=== PATIENT | male | born 1975 | race Caucasian/White ===

== ENCOUNTER 2016-06-19 17:29 | Observation (INO) ==
[2016-06-19 18:08] LABS: Basophils # 0.1 K/mcL (0.0-0.2); Basophils % 0.6 %; Eosinophils # 0.1 K/mcL (0.0-0.6); Eosinophils % 1.4 %; Hematocrit 49.1 % (37.5-50.1); Hemoglobin 17.7 g/dL (12.9-16.9); Immature Granulocytes % 0.3 % (0-4); Lymphocytes # 4.5 K/mcL (0.6-4.6); Lymphocytes % 52.2 %; Mean Corpuscular Hemoglobin 32.8 pg (28.0-33.3); Mean Corpuscular Volume 90.9 fL (83.0-100.0); Mean Platelet Volume 9.9 fL (9.4-12.4); Monocytes % 11.4 %; Neutrophils # 2.9 K/mcL (1.6-8.9); Platelet Count 247 K/mcL (140-400); Red Cell Distribution Width 13.7 % (11.5-14.5); Segmented Neutrophils % 34.1 %
[2016-06-19 18:15] LABS: Bilirubin,Urine Negative (Negative); Blood,Urine Negative (Negative); Clarity,Urine Clear (Clear); Color,Urine Yellow (Yellow); Glucose,Urine (UA) Normal (Normal); Ketones,Urine Negative (Negative); Leukocyte Esterase,Urine Negative (Negative); Nitrite,Urine Negative (Negative); PH,Urine 6.5 pH Units (5.0-8.0); Protein,Urine Negative (Neg-Trace); Specific Gravity,Urine 1.007 (1.010-1.025); Urobilinogen,Urine Normal (Normal)
[2016-06-19 18:20] LABS: Amphetamine Screen,Urine Negative ng/mL (Cutoff=1000); Barbiturate Screen,Urine Negative ng/mL (Cutoff=200); Benzodiazepines Screen,Urine Positive ng/mL (Cutoff=200); Cannabinoid Screen,Urine Negative ng/mL (Cutoff = 50); Cocaine Screen,Urine Negative ng/mL (Cutoff= 300); Opiate Screen,Urine Negative ng/mL (Cutoff=300); Phencyclidine Screen,Urine Negative ng/mL (Cutoff=25)
[2016-06-19 18:25] LABS: BUN/Creatinine Ratio 8 (6-26); Blood Urea Nitrogen 7 mg/dL (8-26); Calcium 8.4 mg/dL (8.6-10.8); Carbon Dioxide 24 mEq/L (19-29); Chloride 112 mEq/L (98-109); Ethanol 347 mg/dL (0-10); Glucose 90 mg/dL (70-99); Osmolality,Calculated 302 (280-300); Potassium 3.8 mEq/L (3.5-4.5); Sodium 147 mEq/L (136-145); eGFR For African Americans > 60 (> 60); eGFR For Non-African Americans > 60 (> 60)
[2016-06-19 18:26] LABS: Acetaminophen < 1.0 mcg/mL (10-30); Salicylate < 5.0 mg/dL (15-30)
[2016-06-20 04:52] LABS: Basophils # 0.1 K/mcL (0.0-0.2); Eosinophils # 0.2 K/mcL (0.0-0.6); Eosinophils % 2.1 %; Hematocrit 45.7 % (37.5-50.1); Immature Granulocytes % 0.4 % (0-4); Lymphocytes # 3.6 K/mcL (0.6-4.6); Lymphocytes % 46.4 %; Mean Corpuscular HGB Conc 34.4 g/dL (31.6-35.5); Mean Corpuscular Hemoglobin 31.9 pg (28.0-33.3); Mean Corpuscular Volume 92.9 fL (83.0-100.0); Mean Platelet Volume 9.9 fL (9.4-12.4); Monocytes # 1.1 K/mcL (0.0-1.3); Monocytes % 14.2 %; Neutrophils # 2.8 K/mcL (1.6-8.9); Platelet Count 237 K/mcL (140-400); Red Blood Count 4.92 M/mcL (4.19-5.50); Red Cell Distribution Width 13.8 % (11.5-14.5); Segmented Neutrophils % 35.9 %
[2016-06-20 05:03] LABS: BUN/Creatinine Ratio 9 (6-26); Blood Urea Nitrogen 7 mg/dL (8-26); Calcium 8.1 mg/dL (8.6-10.8); Carbon Dioxide 23 mEq/L (19-29); Chloride 108 mEq/L (98-109); Glucose 77 mg/dL (70-99); Hemoglobin 15.7 g/dL (12.9-16.9); Osmolality,Calculated 291 (280-300); Potassium 3.6 mEq/L (3.5-4.5); Sodium 142 mEq/L (136-145); eGFR For African Americans > 60 (> 60); eGFR For Non-African Americans > 60 (> 60)
[2016-06-20 12:12] VITALS: BP 149/94
== END 2016-06-20 16:22 | disposition home or self-care (01) ==
LOC: 3BNU 17:29 → EMEROO 17:29 → 3BNU 20:25 → SUATTDRO 20:41
PROVIDERS: ADMIT Internal Medicine; ATTEND Internal Medicine

== ENCOUNTER 2016-06-21 21:52 | Observation (INO) ==
--- NOTE | 2016-06-21 22:17 | Emergency Department Note ---
Disposition Clinical Impression: Suicidal ideation Acute alcohol intoxication Qualifiers: Complication of substance-induced condition: uncomplicated Qualified Code(s): F10.120 - Alcohol abuse with intoxication, uncomplicated Disposition: Admitted As Inpatient Condition: Fair Referrals: NO,PCP [Primary Care Provider] - Forms: ED Satisfaction Letter Time of Disposition: 03: Psych HPI - General Chief Complaint: ED Psychiatric Symptoms Stated Complaint: seizures Time Seen by Provider: 06/21/16 21:58 Source: EMS Mode of arrival: EMS Limitations: no limitations Nursing Notes Reviewed: Yes Vital Signs Reviewed: Yes - History of Present Illness HPI Narrative: 41-year-old male history of suicidal ideation presents with same, also has a history of seizures noncompliant on Keppra for the last year, with 1 minute witnessed seizure in route by EMS. Apparently per the patient, he was at home upset that his aunt was and started to "flip out" on people, called the health care social worker Carolina SANTANA, she then called law enforcement and he wrote a pink slip. Patient reports thoughts of suicide to several ideation by himself. This what he told his health care social worker. She wrote a pink slip that also included he was a threat of homicidal ideation, dots of hurting himself and other people. She denies auditory or visual hallucinations. 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 Constitutional: Denies: fever, chills, weakness, weight change Eyes: Denies: eye pain, eye discharge, vision change Cardiovascular: Denies: chest pain, palpitations, dyspnea on exertion, edema, syncope Respiratory: Denies: cough, dyspnea, wheezes, hemoptysis, stridor Gastrointestinal: Denies: abdominal pain, nausea, vomiting, diarrhea, constipation, hematemesis, melena, hematochezia Genitourinary: Denies: urgency, dysuria, frequency, hematuria Musculoskeletal: Denies: back pain, neck pain, arthralgia, myalgia Neurological: Denies: headache, weakness, numbness, paresthesias, confusion, abnormal gait, vertigo Psychiatric: Reports: depression, suicidal thoughts (Thoughts of hanging himself ) Past Medical History - Past Medical History Attestation: Yes The following information was validated with the patient. Source: patient Medical history: Reports: hepatitis, hyperlipidemia, hypertension, seizures Surgical history: Reports: other Psychiatric history: Reports: no psych history - Social History Smoking Status: Current every day smoker Smokeless Tobacco Status: No Alcohol use: Reports: heavy, recent Drug use: Reports: none, marijuana Physical Exam Constitutional: alert and oriented, in NAD, vital signs reviewed and were within normal limits Neck: normal inspection, neck is supple, trachea midline, no JVD Resp: normal chest inspection, CTA bilaterally, no resp distress, symmetric chest rise CV: RRR, no m/g/r, Pulses +2 Rad, +2 DP/PT bilaterally, no pedal edema GI: normal inspection, Soft, NTND, BS present and normoactive Back: normal inspection, no tenderness to palpation Neuro: A&O3, CN II-XII grossly intact bilaterally, no gross motor or sensory deficits bilaterally MSK: normal inspection, bilateral UE and LE with normal ROM and no deformities Psych: Positive for suicidal ideation admit to thoughts of hanging himself Skin: No rashes, skin warm, dry, intact - General Limitations: no limitations General appearance: alert, in no apparent distress Course Course Narrative: 41-year-old male with suicidal ideation, pink slip by [employer] Susan Casillas en route, brought in by , also self-harm, threatened pain himself, will do psych workup and then clearance and one a evaluation - Reevaluation(s) Reevaluation #1: Blood alcohol 240, was admitted to medicine service for sobriety and then medical clearance to be evaluated by psych Time: 03:17 Vital Signs Temperature 98.7 F 06/21/16 21:53 Pulse Rate 96 06/21/16 21:53 Respiratory Rate 16 06/21/16 21:53 Blood Pressure 174/108 06/21/16 21:53 O2 Sat by Pulse Oximetry 95 06/21/16 21:53 Temperature 97.9 F 06/22/16 02:06 Pulse Rate 98 06/22/16 02:06 Respiratory Rate 16 06/22/16 02:06 Blood Pressure 108/64 06/22/16 02:06 O2 Sat by Pulse Oximetry 95 06/22/16 02:06 Oxygen Delivery Oxygen Delivery Room Air Psych - Lab Data Result diagrams: 06/21/16 22:19 06/21/16 22:19 Lab Results 06/21/16 06/21/16 06/21/16 Range/Units 22:11 22:11 22:19 WBC 7.0 (4.3-11.1) K/mcL RBC 5.64 H (4.19-5.50) M/mcL Hgb 18.1 H D (12.9-16.9) g/dL Hct 51.2 H (37.5-50.1) % MCV 90.8 (83.0-100.0) fL MCH 32.1 (28.0-33.3) pg MCHC 35.4 (31.6-35.5) g/dL RDW 13.5 (11.5-14.5) % Plt Count 245 (140-400) K/mcL MPV 10.1 (9.4-12.4) fL Immature Gran % 0.3 (0-4) % Seg Neutrophils % 34.5 % Lymphocytes % 50.4 % Monocytes % 11.9 % Eosinophils % 2.0 % Basophils % 0.9 % Neutrophils # 2.4 (1.6-8.9) K/mcL Lymphocytes # 3.5 (0.6-4.6) K/mcL Monocytes # 0.8 (0.0-1.3) K/mcL Eosinophils # 0.1 (0.0-0.6) K/mcL Basophils # 0.1 (0.0-0.2) K/mcL Immature Plt Fraction 6.3 H (1.1-6.1) % Sodium (136-145) mEq/L Potassium (3.5-4.5) mEq/L Chloride (98-109) mEq/L Carbon Dioxide (19-29) mEq/L BUN (8-26) mg/dL Creatinine (0.72-1.25) mg/dL Est GFR ( Amer) (> 60) Est GFR (Non-Af Amer) (> 60) BUN/Creatinine Ratio (6-26) Glucose (70-99) mg/dL Calculated Osmolality (280-300) Calcium (8.6-10.8) mg/dL Urine Color Yellow (Yellow) Urine Clarity Clear (Clear) Urine pH 6.0 (5.0-8.0) pH Units Ur Specific [place] 1.010 (1.010-1.025) Urine Protein Negative (Neg-Trace) mg/dL Urine Glucose (UA) Normal (Normal) mg/dL Urine Ketones Negative (Negative) mg/dL Urine Blood Negative (Negative) Urine Nitrite Negative (Negative) Urine Bilirubin Negative (Negative) Urine Urobilinogen Normal (Normal) mg/dL Ur Leukocyte Esterase Negative (Negative) Salicylates (15-30) mg/dL Urine Opiates Screen Negative (Fhcsqg=267) ng/mL Acetaminophen (10-30) mcg/mL Ur Barbiturates Screen Negative (Ljnrzp=607) ng/mL Ur Phencyclidine Scrn Negative (Cutoff=25) ng/mL Ur Amphetamines Screen Negative (Knujju=0066) ng/mL U Benzodiazepines Scrn Positive H (Oifcyd=489) ng/mL Urine Cocaine Screen Negative (Cutoff= 300) ng/mL U Marijuana (THC) Screen Negative (Cutoff = 50) ng/mL Ethyl Alcohol (0-10) mg/dL 06/21/16 Range/Units 22:19 WBC (4.3-11.1) K/mcL RBC (4.19-5.50) M/mcL Hgb (12.9-16.9) g/dL Hct (37.5-50.1) % MCV (83.0-100.0) fL MCH (28.0-33.3) pg MCHC (31.6-35.5) g/dL RDW (11.5-14.5) % Plt Count (140-400) K/mcL MPV (9.4-12.4) fL Immature Gran % (0-4) % Seg Neutrophils % % Lymphocytes % % Monocytes % % Eosinophils % % Basophils % % Neutrophils # (1.6-8.9) K/mcL Lymphocytes # (0.6-4.6) K/mcL Monocytes # (0.0-1.3) K/mcL Eosinophils # (0.0-0.6) K/mcL Basophils # (0.0-0.2) K/mcL Immature Plt Fraction (1.1-6.1) % Sodium 146 H (136-145) mEq/L Potassium 3.9 (3.5-4.5) mEq/L Chloride 112 H (98-109) mEq/L Carbon Dioxide 21 (19-29) mEq/L BUN 4 L (8-26) mg/dL Creatinine 0.89 (0.72-1.25) mg/dL Est GFR ( Amer) > 60 (> 60) Est GFR (Non-Af Amer) > 60 (> 60) BUN/Creatinine Ratio 4 L (6-26) Glucose 92 (70-99) mg/dL Calculated Osmolality 299 (280-300) Calcium 8.5 L (8.6-10.8) mg/dL Urine Color (Yellow) Urine Clarity (Clear) Urine pH (5.0-8.0) pH Units Ur Specific [place] (1.010-1.025) Urine Protein (Neg-Trace) mg/dL Urine Glucose (UA) (Normal) mg/dL Urine Ketones (Negative) mg/dL Urine Blood (Negative) Urine Nitrite (Negative) Urine Bilirubin (Negative) Urine Urobilinogen (Normal) mg/dL Ur Leukocyte Esterase (Negative) Salicylates < 5.0 L (15-30) mg/dL Urine Opiates Screen (Ktijss=294) ng/mL Acetaminophen < 1.0 L (10-30) mcg/mL Ur Barbiturates Screen (Xxxslh=380) ng/mL Ur Phencyclidine Scrn (Cutoff=25) ng/mL Ur Amphetamines Screen (Dtsimx=3322) ng/mL U Benzodiazepines Scrn (Seuklr=507) ng/mL Urine Cocaine Screen (Cutoff= 300) ng/mL U Marijuana (THC) Screen (Cutoff = 50) ng/mL Ethyl Alcohol 242 H (0-10) mg/dL Psychiatric Medical Clearance - Medical Clearance Checklist Does the patient have a NEW psychiatric condition?: No Any abnormalities indicating possible medical illness?: No Any history of medical issues?: No Medical History: No Social History Section defined Any abnormal vital signs prior to transfer?: No Current Vitals: Last Vital Signs Temp 97.9 F 06/22/16 02:06 Pulse 98 06/22/16 02:06 Resp 16 06/22/16 02:06 BP 108/64 06/22/16 02:06 Pulse Ox 95 06/22/16 02:06 Is the patient intoxicated or cognitively impaired?: Yes Psychiatric Lab Panel: Drug Levels and Toxicity 06/21/16 06/21/16 22:11 22:19 Urine Opiates Screen Negative Acetaminophen < 1.0 L Ur Barbiturates Screen Negative Ur Phencyclidine Scrn Negative Ur Amphetamines Screen Negative U Benzodiazepines Scrn Positive H Urine Cocaine Screen Negative U Marijuana (THC) Screen Negative Ethyl Alcohol 242 H Any abnormalities on the physical exam?: Yes Any abnormal labs?: Yes Abnormal Labs: Abnormal lab results RBC 5.64 M/mcL (4.19-5.50) H 06/21/16 22:19 Hgb 18.1 g/dL (12.9-16.9) H D 06/21/16 22:19 Hct 51.2 % (37.5-50.1) H 06/21/16 22:19 Immature Plt Fraction 6.3 % (1.1-6.1) H 06/21/16 22:19 Sodium 146 mEq/L (136-145) H 06/21/16 22:19 Chloride 112 mEq/L (98-109) H 06/21/16 22:19 BUN 4 mg/dL (8-26) L 06/21/16 22:19 BUN/Creatinine Ratio 4 (6-26) L 06/21/16 22:19 Calcium 8.5 mg/dL (8.6-10.8) L 06/21/16 22:19 Salicylates < 5.0 mg/dL (15-30) L 06/21/16 22:19 Acetaminophen < 1.0 mcg/mL (10-30) L 06/21/16 22:19 U Benzodiazepines Scrn Positive ng/mL (Atnewe=970) H 06/21/16 22:11 Ethyl Alcohol 242 mg/dL (0-10) H 06/21/16 22:19 Does the patient require durable medical equiptment?: No Is the patient ambulatory?: Yes Is the patient a fall risk?: No Has the patient been medically cleared?: No Any acute medical condition require Tx prior to transfer?: No Statement of Medical Clearance: I have evaluated the patient, reviewed diagnostic information, and certify that the patient's medical condition is sufficiently stable that transfer to the psychiatric unit does not pose a significant risk of deterioration. Attestation Statement - Attestation Attestation: I, Tino Contreras MD, personally performed a history and physical exam of the patient and discussed their management with the resident. I reviewed the resident's note and agree with the documented findings, medical decision making , and plan of care. 41-year-old male who was brought to the emergency department by ambulance for medical clearance for psychiatric placement. The patient has a history of psychiatric issues and depression. He states that he has been depressed and he found out today that his abdomen was in the hospital and was dying. He admits to suicidal thoughts. He apparently was threatening to hang himself and his called his health care social worker who evaluated him at the resident's and referred him here with a signed pink slip. Patient has a history of seizures and does not take his medication for quite sometime. He apparently has seizures daily. On examination patient is a well-developed well-nourished male in no acute distress. He is alert and oriented 3. There is no cyanosis or diaphoresis. He is calm and cooperative. No gross focal neurological deficits. Breath sounds are equal bilaterally. Heart regular rate and rhythm. Abdomen is soft and nontender with normal bowel sounds. We will obtain medical clearance labs. Reportedly patient's air brake worker is supposed to come in to help with disposition. Labs reviewed. Tox screen positive for benzodiazepines. Alcohol level 242. The hospitalist, Dr. Roman, was consulted and accepted admission of the patient.
[2016-06-21 22:25] LABS: Bilirubin,Urine Negative (Negative); Blood,Urine Negative (Negative); Clarity,Urine Clear (Clear); Color,Urine Yellow (Yellow); Glucose,Urine (UA) Normal (Normal); Ketones,Urine Negative (Negative); Leukocyte Esterase,Urine Negative (Negative); Nitrite,Urine Negative (Negative); Protein,Urine Negative (Neg-Trace); Urobilinogen,Urine Normal (Normal)
[2016-06-21 22:26] LABS: Basophils # 0.1 K/mcL (0.0-0.2); Basophils % 0.9 %; Eosinophils # 0.1 K/mcL (0.0-0.6); Hematocrit 51.2 % (37.5-50.1); Immature Granulocytes % 0.3 % (0-4); Immature Platelets 6.3 % (1.1-6.1); Lymphocytes # 3.5 K/mcL (0.6-4.6); Lymphocytes % 50.4 %; Mean Corpuscular HGB Conc 35.4 g/dL (31.6-35.5); Mean Corpuscular Hemoglobin 32.1 pg (28.0-33.3); Mean Corpuscular Volume 90.8 fL (83.0-100.0); Mean Platelet Volume 10.1 fL (9.4-12.4); Monocytes # 0.8 K/mcL (0.0-1.3); Monocytes % 11.9 %; Neutrophils # 2.4 K/mcL (1.6-8.9); Platelet Count 245 K/mcL (140-400); Red Blood Count 5.64 M/mcL (4.19-5.50); Red Cell Distribution Width 13.5 % (11.5-14.5); Segmented Neutrophils % 34.5 %
[2016-06-21 22:27] LABS: Hemoglobin 18.1 g/dL (12.9-16.9)
[2016-06-21 22:28] LABS: Amphetamine Screen,Urine Negative ng/mL (Cutoff=1000); Barbiturate Screen,Urine Negative ng/mL (Cutoff=200); Benzodiazepines Screen,Urine Positive ng/mL (Cutoff=200); Cannabinoid Screen,Urine Negative ng/mL (Cutoff = 50); Cocaine Screen,Urine Negative ng/mL (Cutoff= 300); Opiate Screen,Urine Negative ng/mL (Cutoff=300); Phencyclidine Screen,Urine Negative ng/mL (Cutoff=25)
[2016-06-21 22:40] LABS: BUN/Creatinine Ratio 4 (6-26); Calcium 8.5 mg/dL (8.6-10.8); Carbon Dioxide 21 mEq/L (19-29); Chloride 112 mEq/L (98-109); Glucose 92 mg/dL (70-99); Osmolality,Calculated 299 (280-300); Potassium 3.9 mEq/L (3.5-4.5); Sodium 146 mEq/L (136-145); eGFR For African Americans > 60 (> 60); eGFR For Non-African Americans > 60 (> 60)
[2016-06-21 22:41] LABS: Acetaminophen < 1.0 mcg/mL (10-30); Blood Urea Nitrogen 4 mg/dL (8-26); Ethanol 242 mg/dL (0-10); Salicylate < 5.0 mg/dL (15-30)
[2016-06-22] MEDS ORDERED: Naloxone 0.4 MG/ML INJ IVP PRN (03:21)
[2016-06-22] MEDS ORDERED: Acetaminophen 325 MG TABLET PO PRN (03:21)
[2016-06-22] MEDS ORDERED: Ondansetron ODT 4 MG TAB.RAPDIS SL PRN (03:21)
[2016-06-22] MEDS ORDERED: *HR* Promethazine 25 MG/ML VIAL IVP PRN (03:21)
[2016-06-22] MEDS ORDERED: *HR* LORazepam 2 MG/ML VIAL IVP PRN ×6 (03:21→04:27)
[2016-06-22] MEDS ORDERED: hydrOXYzine pamoate 25 MG CAPSULE PO PRN (03:43)
--- NOTE | 2016-06-22 03:47 | Internal Med History&Physical ---
<Ana Paula Corral - Last Filed: 06/22/16 04:28> Date of Encounter: 06/22/16 Time of Encounter: 03:45 Assessment and Plan (1) Suicidal ideation Current visit: Yes Status: Acute 1A to see patient after his BAL level <80 (2) Alcohol dependence with intoxication Current visit: No Status: Acute CIWA protocol Qualifiers: Complication of substance-induced condition: with unspecified complication Qualified Code(s): F10.229 - Alcohol dependence with intoxication, unspecified (3) Convulsions Current visit: No Status: Acute psuedoseizures - witnessed during previous admission by ER and inpatient physicians, no post ictal state pt with hx of seizures per medical record, but not on any medications Qualifiers: Convulsion type: unspecified Qualified Code(s): R56.9 - Unspecified convulsions (4) Hepatitis C virus infection without hepatic coma Current visit: Yes Status: Chronic chronic Hep C must be free of alcohol and recreational drugs for 6 months before treatment can occur Qualifiers: Viral hepatitis chronicity: chronic Qualified Code(s): B18.2 - Chronic viral hepatitis C Internal Medicine - H&P: HPI Chief complaint: SI Admitted From: Emergency Dept Plans for Post Hospital Care: Home History of present illness: Mr. Sandra is a 41 year old male pink-slipped from the ER. According to the ER note, the patient became upset when he learned that his aunt had and began to "flip out" on people. His called his social work program coordinator who pink slipped him when she learned that he was suicidal. On my questioning the patient rambles about how things were messed up with his ex- and she was talking trash and wanting to have a three-some and this upset him. He then stated that he came to hospital because he was suicidal. Blood alcohol level in the emergency room was 242. Patient had a very similar admission 2 days prior. He was pink slipped due to suicidal ideation and was intoxicated at the time of admission. He was discharged the following day which was yesterday. Past Med Surg Social Fam HX - Past Medical History Medical history: GERD, hepatitis, hyperlipidemia, hypertension, seizures Psychiatric history: anxiety, depression, prior suicide attempt, previous psychiatric hospitalization - Past Surgical History Surgical History: other - Social History Smoking Status: Current every day smoker Smokeless Tobacco Status: No Alcohol use: heavy, recent Drug use: marijuana Internal Medicine - H&P: Meds Diazepam [Valium] 2 mg PO TID 06/19/16 [History] Duloxetine HCl [Cymbalta] 60 mg PO BID 06/19/16 [History] HydrOXYzine Pamoate 50 mg PO TID PRN 06/19/16 [History] Omeprazole [PriLOSEC] 40 mg PO DAILY 06/19/16 [History] Polyethylene Glycol 3350 17 gm PO BID PRN 06/19/16 [History] Allergies No Known Allergies Allergy (Verified 06/19/16 17:47) ROS unobtainable: due to mental status All Systems PM: A 10-system review of systems was performed and is negative for pertinent findings except as documented above in the HPI. - Constitutional Vitals: Temp Pulse Resp BP Pulse Ox 97.9 F 98 16 108/64 95 06/22/16 02:06 06/22/16 02:06 06/22/16 02:06 06/22/16 02:06 06/22/16 02:06 General appearance: Present: no acute distress - Head Head exam: Present: atraumatic, normocephalic Additional comments: tongue tacky - patient slightly dehydrated - Eye Eye exam: Present: conjunctival injection, PERRL, sclera anicteric Pupils: Present: PERRL - Neck Neck exam general surgery: Present: supple, trachea midline. Absent: lymphadenopathy - Respiratory Respiratory exam: Present: CTAB. Absent: accessory muscle use, rales, rhonchi, wheezes - Cardiovascular Cardiovascular exam: Present: RRR, +S1, +S2. Absent: diastolic murmur, gallop, rubs, systolic murmur - GI/Abdominal GI/Abdominal exam: Present: normal bowel sounds, soft, no peritoneal signs. Absent: distended, tenderness - Extremities Exam Extremities exam: Present: warm, radial pulses palpable and symetrical. Absent : calf tenderness, cyanotic, pedal edema - Neurological Exam Neurological exam: Present: CN II-XII intact, oriented X3, no focal deficits. Absent: pronater drift, facial droop, speech deficit - Skin Skin exam: Present: dry, intact Internal Med - H&P Results - Labs CBC & Chem 7: 06/21/16 22:19 06/21/16 22:19 <Malick Newman - Last Filed: 06/22/16 04:38> Date of Encounter: 06/22/16 Time of Encounter: 04:30 Assessment and Plan (1) Suicidal ideation Current visit: Yes Status: Acute (2) Acute alcohol intoxication Current visit: Yes Status: Acute Qualifiers: Complication of substance-induced condition: uncomplicated Qualified Code(s ): F10.120 - Alcohol abuse with intoxication, uncomplicated (3) Alcohol dependence with intoxication Current visit: No Status: Acute Qualifiers: Complication of substance-induced condition: with unspecified complication Qualified Code(s): F10.229 - Alcohol dependence with intoxication, unspecified Internal Medicine - H&P: HPI Admitted From: Emergency Dept Plans for Post Hospital Care: Home History of present illness: Mr. Sandra is a 41 year old male with history of alcohol abuse who was brought into the ER after complaining of suicidal ideation and with alcohol intoxication. Patient remembers being upset at home and drinking alcohol. He currently denies suicidal ideation. He was pink slipped in the ER due to suicidal thoughts and so will be seen by psychiatry after medically cleared. Past Med Surg Social Fam HX - Additional Family History Additional family history: Reviewed and found noncontributory at this time All Systems PM: A 10-system review of systems was performed and is negative for pertinent findings except as documented above in the HPI. - Constitutional Constitutional: no chills, no fever(s), no night sweats - EENT Eyes: no change in vision, no discharge, no pain, no photophobia Ears: no ear discharge, no ear pain, no tinnitus Nose, mouth and throat: no dysphagia, no nasal discharge, no neck pain, no sore throat - Cardiovascular Cardiovascular ROS IM: no chest pain, no diaphoresis, no dyspnea, no lightheadedness, no palpitations, no syncope - Respiratory Respiratory: no cough, no dyspnea, no wheezing, no excessive phlegm production - Gastrointestinal Gastrointestinal: no abdominal pain, no diarrhea, no hematemesis, no hematochezia, no melena, no nausea, no vomiting - Musculoskeletal Musculoskeletal ROS IM: no numbness, no tingling - Integumentary Integumentary IM: no rash, no unusual bruising - Neurological Neurological ROS: no confusion, no convulsions, no focal weakness, no numbness, no tingling, no tremor(s) - Hematologic/Lymphatic Hematologic/Lymphatic: no easy bruising - Constitutional Vitals: Temp Pulse Resp BP Pulse Ox 97.9 F 98 18 135/89 95 06/22/16 02:06 06/22/16 02:06 06/22/16 03:47 06/22/16 03:47 06/22/16 02:06 General appearance: Present: cooperative, A&O X 3, no acute distress, answers questions appropriately - Neck Neck exam general surgery: Present: supple, trachea midline. Absent: lymphadenopathy - Cardiovascular Cardiovascular exam: Present: RRR, +S1, +S2. Absent: diastolic murmur, gallop, rubs, systolic murmur - Extremities Exam Extremities exam: Present: warm, radial pulses palpable and symetrical. Absent : calf tenderness, cyanotic, pedal edema - Neurological Exam Neurological exam: Present: CN II-XII intact, oriented X3, no focal deficits. Absent: pronater drift, facial droop, speech deficit - Psychiatric Psychiatric exam: Present: normal affect, normal mood. Absent: suicidal ideation - Skin Skin exam: Present: dry, intact Internal Med - H&P Results - Labs CBC & Chem 7: 06/21/16 22:19 06/21/16 22:19 - Attending Attestation This document has been at least partially created by [employer] voice recognition technology by Dr. Newman. Errors in grammar, wording or other phrases may exist. If errors are found after the documentation is signed, they will be addressed individually in the addendum section of this document when appropriate. I examined this patient and my medical decision-making was reviewed with the Resident Physician. I agree with the documented history of present illness, review of systems, past medical, surgical social and family histories and examination findings, disposition and treatment plan as described above except to any changes set forth below.
[2016-06-22] MEDS ORDERED: diazePAM 10 MG/2 ML SYRINGE IVP PRN ×5 (04:17)
[2016-06-22] MEDS: *HR* Heparin 5,000 UNIT/ML VIAL SQ SCH ×2 (06:48→14:21)
[2016-06-22] MEDS ORDERED: Thiamine (B-1) 100 MG TABLET PO SCH (09:00)
[2016-06-22] MEDS ORDERED: Vitamin B Complex/Vit C/Vit E 1 EACH TABLET PO SCH (09:00)
[2016-06-22] MEDS ORDERED: Folic Acid 1 MG TABLET PO SCH (09:00)
[2016-06-22] MEDS ORDERED: Thiamine (B-1) 100 MG, Folic Acid 1 MG, MVI, adult with vitamin K 10 ML in 0.9 % Sodi... IV SCH (09:00)
[2016-06-22] MEDS ORDERED: diazePAM 2 MG TABLET PO SCH (09:00)
[2016-06-22] MEDS ORDERED: 0.9 % Sodium Chloride 1,000 ML IVC SCH (10:30)
--- NOTE | 2016-06-22 10:35 | Internal Med Progress Note ---
Date of Encounter: 06/22/16 Time of Encounter: 09:25 - Assessment and plan (1) Suicidal ideation Current Visit: Yes Status: Acute Assessment and plan: Pt denies SI or HI. States that he did not say that to anyone. Pt is pinkslipped currently until evaluated by 1A. Is agreeable to talking to 1A when BAL is <80. Pt was evaluated by 1A. Pt denies SI. Psychiatrist from requests that we consult Or Assistant to set up an appointment with his psychiatrist, from [facility], on an outpatient basis. [facility] staff is to call pt while he is still inpatient and do an [id number] interview with him, potentially to place him in a [facility] facility, which may not be able to be accomplished for 2 days on Friday. (2) Alcohol dependence with intoxication Current Visit: No Status: Acute Assessment and plan: Blood alchol level 242 on arrival to ED last night. Redraw is 10. Will see 1A and wait for their recommendation. Pt states that he started drinking when he was 8 years old and that his mother was an alcholic and would supply it to him. He currently drinks at least a 12 pack of beer daily, sometimes a case, "depending on how I feel Qualifiers: Complication of substance-induced condition: uncomplicated Qualified Code(s ): F10.220 - Alcohol dependence with intoxication, uncomplicated (3) Convulsions Current Visit: No Status: Acute Assessment and plan: Pt had witnessed pseudoseizure during last admission. Does not take medication for this. Will continue to monitor. Qualifiers: Convulsion type: unspecified Qualified Code(s): R56.9 - Unspecified convulsions (4) Hepatitis C virus infection without hepatic coma Current Visit: Yes Status: Chronic Assessment and plan: Chronic. Will continue to monitor. Qualifiers: Viral hepatitis chronicity: chronic Qualified Code(s): B18.2 - Chronic viral hepatitis C - Time Spent With Patient less than 15 minutes - Subjective Interval history: Pt denies SI or HI. States that he was talking on the phone last night to his psychiatrist who said that she would meet him at the ED so that they could work out the problems he was having with his ex. When he arrived at the ED last night , she was not here. Now he states that she is fired and a liar. He is upset that rachel said that he was suicidal, when he is not. He denies pain and is agreeable to speaking with 1A when BAL is lower. - Constitutional Vitals: Temp Pulse Resp BP Pulse Ox 97.7 F 92 20 135/77 96 06/22/16 07:52 06/22/16 07:52 06/22/16 07:52 06/22/16 07:52 06/22/16 07:52 General appearance: Present: cooperative, A&O X 3, pleasant, no acute distress, answers questions appropriately - Eye Eye exam: Present: normal appearance, PERRL. Absent: nystagmus - ENT ENT exam: Present: mucous membranes moist, normal exam - Neck Neck exam general surgery: Present: full ROM, normal inspection. Absent: lymphadenopathy, tenderness - Respiratory Respiratory exam: Present: CTAB. Absent: accessory muscle use, chest wall tenderness, decreased breath sounds, rales, respiratory distress, rhonchi, stridor, wheezes, tachypnea - Cardiovascular Cardiovascular exam: Present: RRR, +S1, +S2 - GI/Abdominal GI/Abdominal exam: Present: soft. Absent: hepatomegaly, tenderness - Extremities Exam Extremities exam: Present: full ROM, normal capillary refill, normal inspection. Absent: calf tenderness, cyanotic, joint swelling, pedal edema, tenderness - Back Exam Back exam: Present: full ROM, normal inspection. Absent: tenderness - Neurological Exam Neurological exam: Present: alert, oriented X3, strengths equal and symetr throughout. Absent: facial droop, speech deficit Internal Medicine: Result - Labs CBC & Chem 7: 06/21/16 22:19 06/21/16 22:19 Consult Discharge Plan - Plan Referrals: NO,PCP [Primary Care Provider] -
--- NOTE | 2016-06-22 14:43 | Consult Note ---
Date of Encounter: 06/22/16 Time of Encounter: 14:00 Assessment & Recommendation (1) Alcohol dependence with intoxication Current visit: No Status: Acute Assessment & Recommendation: At this point patient is not demonstrating any suicidal homicidal ideations and there are no psychiatric issues to be addressed. Patient does have an ongoing alcohol-related issues and is struggling from alcohol dependence. I discussed at length about rehabilitation for alcohol. Patient is open and willing to this idea. I discussed patient's care with the clinical nurse practitioner Dulce Purvis who is treating patient on the [facility] floor and discuss my recommendations with strong emphasis on reaching out to the social media campaign manager in setting up outpatient rehab appointment. Qualifiers: Complication of substance-induced condition: uncomplicated Qualified Code(s ): F10.220 - Alcohol dependence with intoxication, uncomplicated History of Present Illness Patient: new to practice Requesting Physician: Edyta Conde Reason for consult: To assess patient for suicidality History of present illness: Mr. Sandra is a 41 year old male Was referred for hospitalization from emergency department where he presented in an intoxicated state reporting suicidal ideations. Patient was just hospitalized 2 days ago on the [facility] floor with a similar presentation he was seen by one of our psychiatrist Dr. Saleh on the floor (please refer to the attached consult). Patient brought himself to the emergency department after he called his therapist because of feeling extremely overwhelmed due to finding out that his aunt has recently .. The patient reported that his aunt and that flipped him off and he started drinking. He also made some comments in the emergency department (in an intoxicated state ) about issues with his girlfriend and how she wanted him to have 3 some and he got angry and upset at her. Upon interview today patient denies making any such statements. In the ED patient was intoxicated and rambling and not making sense and it was decided to hospitalize him on the [facility] floor. When I interviewed the patient today he is clear coherent and relevant. He was embarrassed about his drinking and his hospitalization. He does not remember what he reported in the emergency department. He is denying any suicidal or homicidal ideations. He has resolved his ongoing issues with his girlfriend. Patient is agreeable on going to outpatient rehabilitation and willing to work on his alcohol-related issues. He is denying any depression anxiety manic or psychotic symptoms. He is denying any suicidal or homicidal ideations. He is future oriented and able to verbalize a safety plan. CC: Edyta Conde Past Med Surg Social Fam HX - Past Medical History Medical history: GERD, hepatitis, hyperlipidemia, hypertension, seizures - Past Psychiatric History Psychiatric history: Reports: no psych history Family psychiatric history: No Family History of Suicide: None - Past Surgical History Surgical History: other - Social History Smoking Status: Current every day smoker Smokeless Tobacco Status: No Alcohol use: heavy, recent Drug use: marijuana Current living situation: Home Activity Level: Independent ambulation Recent Out of Country Travel Within the Last 8 Weeks: No Exposure or Possible Exposure to Illness During Travel: No - Family History Father Hx Family Cardiac Disorders: Yes ([place]) Hx Family Respiratory Disorders: Yes (COPD) Hx Family Cancer: No Hx Family GI Disorders: No Hx Family Genitourinary Disorders: No Hx Family Endocrine Disorder: No Hx Family Musculoskeletal Disorders: No Hx Family Neuromuscular Disorders: No Hx Family Neurologic Disorders: No Hx Family HEENT Disorders: No Hx Family Autoimmune Disorders: No Hx Family Reproductive Disorders: No Hx Family Psychosocial Disorders: No Hx Family Medical Disorders: No Mother Cause of : CVA Hx Family Cardiac Disorders: Yes ([place], CVA) Hx Family Respiratory Disorders: Yes (COPD) Hx Family Cancer: Yes (Lungs) Hx Family GI Disorders: No Hx Family Genitourinary Disorders: No Hx Family Endocrine Disorder: No Hx Family Musculoskeletal Disorders: No Hx Family Neuromuscular Disorders: No Hx Family Neurologic Disorders: No Hx Family HEENT Disorders: No Hx Family Autoimmune Disorders: No Hx Family Reproductive Disorders: No Hx Family Psychosocial Disorders: No Hx Family Medical Disorders: No Medications & Allergies Diazepam [Valium] 2 mg PO TID 06/19/16 [History] Duloxetine HCl [Cymbalta] 60 mg PO BID 06/19/16 [History] HydrOXYzine Pamoate 50 mg PO TID PRN 06/19/16 [History] Omeprazole [PriLOSEC] 40 mg PO DAILY 06/19/16 [History] Polyethylene Glycol 3350 17 gm PO BID PRN 06/19/16 [History] Allergies No Known Allergies Allergy (Verified 06/19/16 17:47) Mental Status Exam Patient orientation: Yes Person, Yes Time, Yes Place Level of alertness: Alert Patient appearance: Appropriate, Well Groomed Behavior: calm, cooperative Psychomotor activity: Normal Eye contact: Maintains Eye Contact Mood description: Euthymic/stable Affect description: congruent with mood, full range Speech pattern: Normal rate, Normal rhythm, Normal tone Speech volume: Normal Thought process: Linear, Goal Oriented Thought content: No Suicidal ideation, No Homicidal ideation, No Overt delusions Perceptual disturbances: No Auditory hallucinations, No Visual hallucinations Attention span: Capable of Focused Attention Memory description: Grossly Intact Patient reliability: Reliable Historian Intelligence estimate: Average Judgment: Limited Insight: Partial Results - Vital Signs Vital signs: Temp Pulse Resp BP Pulse Ox 97.9 F 72 16 168/76 96 06/22/16 12:03 06/22/16 12:03 06/22/16 12:03 06/22/16 12:03 06/22/16 12:03 - Drug Levels and Toxicology Drug Levels and Toxicology: Drug Levels and Toxicity 06/22/16 08:42 Ethyl Alcohol 10 - Labs Labs: Laboratory Last Values WBC 7.0 K/mcL (4.3-11.1) 06/21/16 22:19 RBC 5.64 M/mcL (4.19-5.50) H 06/21/16 22:19 Hgb 18.1 g/dL (12.9-16.9) H D 06/21/16 22:19 Hct 51.2 % (37.5-50.1) H 06/21/16 22:19 MCV 90.8 fL (83.0-100.0) 06/21/16 22:19 MCH 32.1 pg (28.0-33.3) 06/21/16 22:19 MCHC 35.4 g/dL (31.6-35.5) 06/21/16 22:19 RDW 13.5 % (11.5-14.5) 06/21/16 22:19 Plt Count 245 K/mcL (140-400) 06/21/16 22:19 MPV 10.1 fL (9.4-12.4) 06/21/16 22:19 Immature Gran % 0.3 % (0-4) 06/21/16 22:19 Seg Neutrophils % 34.5 % 06/21/16 22:19 Lymphocytes % 50.4 % 06/21/16 22:19 Monocytes % 11.9 % 06/21/16 22:19 Eosinophils % 2.0 % 06/21/16 22:19 Basophils % 0.9 % 06/21/16 22:19 Neutrophils # 2.4 K/mcL (1.6-8.9) 06/21/16 22:19 Lymphocytes # 3.5 K/mcL (0.6-4.6) 06/21/16 22:19 Monocytes # 0.8 K/mcL (0.0-1.3) 06/21/16 22:19 Eosinophils # 0.1 K/mcL (0.0-0.6) 06/21/16 22:19 Basophils # 0.1 K/mcL (0.0-0.2) 06/21/16 22:19 Immature Plt Fraction 6.3 % (1.1-6.1) H 06/21/16 22:19 Sodium 146 mEq/L (136-145) H 06/21/16 22:19 Potassium 3.9 mEq/L (3.5-4.5) 06/21/16 22:19 Chloride 112 mEq/L (98-109) H 06/21/16 22:19 Carbon Dioxide 21 mEq/L (19-29) 06/21/16 22:19 BUN 4 mg/dL (8-26) L 06/21/16 22:19 Creatinine 0.89 mg/dL (0.72-1.25) 06/21/16 22:19 Est GFR ( Amer) > 60 (> 60) 06/21/16 22:19 Est GFR (Non-Af Amer) > 60 (> 60) 06/21/16 22:19 BUN/Creatinine Ratio 4 (6-26) L 06/21/16 22:19 Glucose 92 mg/dL (70-99) 06/21/16 22:19 Calculated Osmolality 299 (280-300) 06/21/16 22:19 Calcium 8.5 mg/dL (8.6-10.8) L 06/21/16 22:19 Urine Color Yellow (Yellow) 06/21/16 22:11 Urine Clarity Clear (Clear) 06/21/16 22:11 Urine pH 6.0 pH Units (5.0-8.0) 06/21/16 22:11 Ur Specific [place] 1.010 (1.010-1.025) 06/21/16 22:11 Urine Protein Negative mg/dL (Neg-Trace) 06/21/16 22:11 Urine Glucose (UA) Normal mg/dL (Normal) 06/21/16 22:11 Urine Ketones Negative mg/dL (Negative) 06/21/16 22:11 Urine Blood Negative (Negative) 06/21/16 22:11 Urine Nitrite Negative (Negative) 06/21/16 22:11 Urine Bilirubin Negative (Negative) 06/21/16 22:11 Urine Urobilinogen Normal mg/dL (Normal) 06/21/16 22:11 Ur Leukocyte Esterase Negative (Negative) 06/21/16 22:11 Salicylates < 5.0 mg/dL (15-30) L 06/21/16 22:19 Urine Opiates Screen Negative ng/mL (Wqxjyi=635) 06/21/16 22:11 Acetaminophen < 1.0 mcg/mL (10-30) L 06/21/16 22:19 Ur Barbiturates Screen Negative ng/mL (Zqqovl=081) 06/21/16 22:11 Ur Phencyclidine Scrn Negative ng/mL (Cutoff=25) 06/21/16 22:11 Ur Amphetamines Screen Negative ng/mL (Zfwpab=2706) 06/21/16 22:11 U Benzodiazepines Scrn Positive ng/mL (Mvjhtz=409) H 06/21/16 22:11 Urine Cocaine Screen Negative ng/mL (Cutoff= 300) 06/21/16 22:11 U Marijuana (THC) Screen Negative ng/mL (Cutoff = 50) 06/21/16 22:11 Ethyl Alcohol 10 mg/dL (0-10) 06/22/16 08:42 Consult Discharge Plan - Plan Referrals: NO,PCP [Primary Care Provider] -
[2016-06-22 16:48] VITALS: BP 157/90
--- NOTE | 2016-06-22 17:24 | Discharge Summary ---
Date of Encounter: 06/23/16 Time of Encounter: 17:15 - Discharge Diagnosis (1) Suicidal ideation Priority: Primary Status: Acute Comments: Pt was seen by 1A, Dr. Tee today and found to not be having suicidal ideations any longer. Pt does not meet criteria for 1A. Spoke with 3B social science professor who states that pt's counselor from [facility] was to do a phone interview with pt and attempt to place him in a state facility or a rehab. I spoke with counselor, Antoinette Casillas, who states that she is not national investigative producer, but directed me to Haromny Meghan. I spoke with Harmony who feels that pt will not meet criteria for state mental health facility since he is not having a mental health issue, but is having a dependency issue instead. Harmony called her slate splitting supervisor who agreed. [facility] will not be evaluating the pt. Pt states that he is not going to drink tonight because he has no way to get anywhere to purchase alcohol. He still denies SI or HI at this time and states that he says things like that when he is drunk only. Pt is alert and awake, appropriate and pleasant. Answers questions appropriately. Pt is aware that if he needs assistance with getting an appointment with his psychiatrist, he can call our social science professor, Harmony Ochoa , and come see her at 12:30 on Friday, 06/24 and she will be glad to assist. (2) Alcohol dependence with intoxication Priority: Secondary Status: Chronic Comments: Chronic. Dr. Tee spoke with pt regarding alcohol rehab, pt was agreeable. He will be given a packet from 1A with rehab resources on discharge. Qualifiers: Complication of substance-induced condition: uncomplicated Qualified Code(s ): F10.220 - Alcohol dependence with intoxication, uncomplicated (3) Convulsions Priority: Secondary Status: Acute Comments: STable. He had no seizure like activity for this admission. Qualifiers: Convulsion type: unspecified Qualified Code(s): R56.9 - Unspecified convulsions (4) Hepatitis C virus infection without hepatic coma Priority: Secondary Status: Chronic Comments: Pt is aware that he must be drug and alcohol free to start treatment. Pt verbalized understanding. Will follow with PCP. Qualifiers: Viral hepatitis chronicity: chronic Qualified Code(s): B18.2 - Chronic viral hepatitis C - Discharge Medications Home Medications: Diazepam [Valium] 2 mg PO TID 06/19/16 [History] Duloxetine HCl [Cymbalta] 60 mg PO BID 06/19/16 [History] HydrOXYzine Pamoate 50 mg PO TID PRN 06/19/16 [History] Omeprazole [PriLOSEC] 40 mg PO DAILY 06/19/16 [History] Polyethylene Glycol 3350 17 gm PO BID PRN 06/19/16 [History] Allergies/Adverse Reactions: Allergies No Known Allergies Allergy (Verified 06/19/16 17:47) Date of admission: 06/22/16 03:00 Primary care physician: PCP NO Consults: 06/22/16 11:16 Consult to Psychiatry [CONS] Routine Consulting Provider: Psychiatry Marilee Reason for Consult: SI Call Completed: Yes Discharging clinician: Dulce Purvis Anticipated date of discharge: 06/22/16 - Patient Status Disposition: Home, Self-Care Condition: Good Functional capacity at discharge: independent ambulation Overall status at discharge: patient is back to baseline - Discharge Instructions Instructions: Alcohol Intoxication (DC) Follow Up With: NO,PCP [Primary Care Provider] - Additional Instructions: Please return to ED for any problems or concerns, or call [facility]. If you need assistance with scheduling your appointment to see mental health, please call our social science professor, she will be happy to assist you. You may make an appointment to see her Saturday 06/24 at 12:30 if you need to. - Diet and Activity Activity: resume usual activities as tolerated Diet: advance to your usual diet Hospital course: Mr. Sandra is a 41 year old male who presented to the ED last night with SI. Pt was pink slipped by his shoe caser at [facility]. He was admitted to for medical management and to speak with after his BAL was less than 80. saw pt and he did not meet criteria for admission to . I personally spoke with 2 people from [facility] who agree that he does not meet criteria for in mental health facility. Pt is being discharged in stable condition with family and belongings that were held by security. Pt will also be given a packet of information on rehab programs and facilities on discharge that I obtained from . Time spent discussing smoking cessation with patient: 3 to 10 minutes - Time Spent with Patient Total time spent providing and/or coordinating discharge services: Greater than 30 minutes - Constitutional Vitals: Temp Pulse Resp BP Pulse Ox 97.8 F 69 18 157/90 95 06/22/16 16:00 06/22/16 16:00 06/22/16 16:00 06/22/16 16:00 06/22/16 16:00 General appearance: Present: cooperative, A&O X 3, pleasant, no acute distress, answers questions appropriately - Head Head exam: Present: atraumatic, normal inspection - Eye Eye exam: Present: normal appearance, conjuntiva pink. Absent: nystagmus - ENT ENT exam: Present: mucous membranes moist, normal exam - Neck Neck exam general surgery: Present: normal inspection. Absent: lymphadenopathy , tenderness - Respiratory Respiratory exam: Present: CTAB. Absent: chest wall tenderness, decreased breath sounds, rales, rhonchi, wheezes - Cardiovascular Cardiovascular exam: Present: RRR, +S1, +S2 - GI/Abdominal GI/Abdominal exam: Present: normal bowel sounds, soft. Absent: tenderness - Extremities Exam Extremities exam: Present: full ROM, normal capillary refill, normal inspection , warm. Absent: calf tenderness, pedal edema - Neurological Exam Neurological exam: Present: alert, oriented X3. Absent: no focal deficits, facial droop, speech deficit
== END 2016-06-22 18:10 | disposition home or self-care (01) ==
LOC: EMEROO 21:52 → 3BNU 21:52
PROVIDERS: ADMIT Internal Medicine; ATTEND Nurse Practitioner Family